=== PATIENT | male | born 1960 | race Caucasian/White ===

== ENCOUNTER 2017-04-15 22:22 | Emergency (ER) | payer OTHER ==
[~2017-04-15] VITALS: Ht 177.8 cm; Wt 90.7 kg
--- NOTE | 2017-04-15 23:12 | DIREP ---
PROCEDURE:XRAY FINGER-RT COMPARISON:None. INDICATIONS:RIGHT THUMB INJURY FINDINGS: BONES:There is an essentially nondisplaced transverse fracture through the mid aspect of the 1st distal phalanx. JOINTS:Advanced degenerative changes of the 1st carpometacarpal joint. SOFT TISSUES:Soft tissue swelling about the distal aspect of the 1st digit. OTHER:No additional findings. CONCLUSION: 1. Essentially nondisplaced fracture of the 1st distal phalanx with surrounding soft tissue swelling. 2. Advanced degenerative changes of the 1st carpometacarpal articulation. Dictated by: Oswaldo Tam M.D. On 04/15/2017 at 11:09 PM
--- NOTE | 2017-04-15 23:16 | ER.PDOC ---
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 Occurred: this morning Where: street Severity: moderate Modifying Factors: pain on movement Allergies: Coded Allergies: Penicillins (Verified Allergy, Mild, NOT SURE, 04/15/17) CHILDHOOD Past Medical History Medical History: no pertinent history Surgical History: knee, shoulder Family History Significant Family History: no pertinent family hx Social History Smoking: non-smoker Alcohol Use: occassionally Drug Use: none Review of Systems Musculoskeletal: other (pain wound R trhumb) Physical Exam General Appearance: Mild Distress, Other (R thumb lac at nail bed tender to palp R thumb) Wrist: nml inspection, non-tender, nml ROM Forearm/Elbow: nml inspection, non-tender, nml ROM Arm/Shoulder: nml inspection, non-tender, nml ROM Neuro/Vasc/Tendon: sensation nml, motor nml, no vascular compromise, tendon function nml Head/ENT: nml inspection, pharynx nml Neck/Back: nml inspection, non-tender Respiratory: chest non-tender, breath sounds nml CVS: heart sounds normal Abdomen: non-tender, no organomegaly Progress Progress tetanus clindamycin im toradol bacatracin dresing splint EKG/XRAY/CT/US XRAY: hand XRAY Comments: fracture R thumb distal phalanx Departure Time of Disposition: 23:32 Disposition: 01 HOME, SELF-CARE Impression: Primary Impression: Fracture of thumb, right open Condition: Stable Referrals: PCP,UNKNOWN (PCP) PRIMARY CARE PROVIDER Additional Instructions: clindamycin tylenol #[address] MD Apr 15, 2017 23:16
[2017-04-15] MEDS ORDERED: TETANUS DIPHTHERIA TOXOIDS IM ONE (23:20)
[2017-04-15] MEDS ORDERED: CLEOCIN ONE (23:20)
[2017-04-15] MEDS ORDERED: TORADOL ONE (23:20)
[2017-04-15] MEDS ORDERED: TRIPLE ANTIBIOTIC OINTMENT TP ONE (23:22)
[2017-04-15] MEDS: BOOSTRIX VACCINE SYRINGE IM ONE (23:30)
[2017-04-15] MEDS: TORADOL IM STA (23:31)
[2017-04-15] MEDS: CLEOCIN IM ONE (23:31)
--- NOTE | 2017-04-15 23:35 | NUR ---
FINGER DRESSING ANTIBIOTIC OINT APPLIED AND DRESSING W/COBAND PER EDP
[2017-04-15 23:40] VITALS: BP 130/62
--- NOTE | 2017-04-15 23:42 | NUR ---
TETANUS LOT [id number] EXP 04/13/19 [facility] [place] [facility]
== END 2017-04-15 23:45 | disposition home or self-care (01) ==
LOC: ER 22:22
DX: S62.521B Displaced fracture of distal phalanx of right thumb, initial encounter for open fracture (principal); Z88.0 Allergy status to penicillin; X58.XXXA Exposure to other specified factors, initial encounter; Y93.89 Activity, other specified; Y92.410 Unspecified street and highway as the place of occurrence of the external cause; Y99.8 Other external cause status
CPT/HCPCS: 73140; 90471; 90714; 96372 ×2; 99284; J1885; J3490